=== PATIENT | male | born 1955 | race Caucasian/White ===

== ENCOUNTER 2016-10-21 09:44 | Observation (INO) | payer BC ==
[2016-10-19 08:11] VITALS: BMI 35.8
[~2016-10-21 09:44] MED LIST: Lidocaine 1% Inj (20ml) ONE
[2016-10-21] MEDS ORDERED: Lactated Ringer's 1,000 ML IV ONE ×2 (11:02)
[2016-10-21] MEDS ORDERED: ceFAZolin IV 2 gm in Dextrose 0 GM/0 ML BAG IVPB ONE (11:06)
[2016-10-21] MEDS ORDERED: Bupivacaine 0.5%/Epi 1:200,000 (10 ML SOL) ONE (11:06)
[2016-10-21] MEDS ORDERED: Midazolam 2 MG/2 ML VIAL ONE (11:14)
[2016-10-21] MEDS ORDERED: Propofol 10 mg/ml Inj (20 ML) ONE (11:14)
[2016-10-21] MEDS ORDERED: Vancomycin 1 gm/D5W 200 ml 1 GM/200 ML BAG IVPB ONE (11:17)
[2016-10-21] MEDS ORDERED: Etomidate 20 mg/10ml Inj IV ONE (11:32)
[2016-10-21] MEDS ORDERED: Sodium Chloride 0.9% 1,000 ML IV ONE ×2 (12:00→18:35)
[2016-10-21] MEDS ORDERED: Rocuronium 10 mg/ml (5 ml) ONE (13:17)
[2016-10-21] MEDS ORDERED: Neostigmine Methylsulfate 3mg/3ml Syringe IV ONE (13:24)
[2016-10-21] MEDS ORDERED: Oxycodone/Acetaminophen 5/325 mg Tab PO PRN ×3 (13:41→19:11)
[2016-10-21] MEDS: HYDROmorphone 0.5 mg/0.5 ml ISec IVP PRN ×2 (13:47→14:12)
--- NOTE | 2016-10-21 13:53 | PCM.SURG1 ---
Surgeon's Initial Post Op Note - Surgeon's Notes Surgeon: Dr. Anglin Floor Covering Printer: Jennifer Fajardo, PGY2; [facility] [place] Pre-Operative Diagnosis: large Chronic left inguinal hernia Operative Findings: see full operative report Post-Operative Diagnosis: large chronic direct/indirect left inguinal hernia Operation Performed: open left inguinal hernia repair with mesh Specimen/Specimens Removed: left inguinal hernia sac Estimated Blood Loss: EBL {In ML}: 50 Date of Surgery/Procedure: 10/21/16 Time of Surgery/Procedure: 12:30
--- NOTE | 2016-10-21 16:59 | OP ---
PROCEDURE DATE: 10/21/2016 PREOPERATIVE DIAGNOSIS: Large chronically incarcerated left inguinal hernia. PROCEDURE: Repair of large chronically incarcerated left inguinal hernia with PHS Prolene hernia system. SURGEON: Romario Anglin Jr., MD APPAREL EMBROIDERY DIGITIZER: Dr. Joyner. ANESTHESIA ADMINISTERED BY: , PALLIATIVE CARE SPECIALIST INDICATIONS: The patient is a 61-year-old man with history of coronary artery disease who has a large chronically incarcerated left inguinal hernia. OPERATIVE FINDINGS: Primarily incarcerated omentum and colon. This was reduced spontaneously. The sac was then opened. The distal portion left inside with the peritoneal side portion stapled making sure that we did not injure the bowel or intestine. We then deployed the PHS Prolene hernia system internally while the other part sutured and stapled it into position and we had an excellent repair. We then closed the external oblique. We made sure the testicles were in the scrotum. There were no operative complications or problems. The blood loss was approximately 100 mL. The operation carried out is repair of chronically incarcerated left inguinal hernia with a PHS Prolene hernia system. The patient was on Plavix and did not have any unusual bleeding during the procedure. The scrotum on the left side was the size of a cantaloupe, which was reduced in size . Romario Anglin Jr., MD
[2016-10-21 19:57] VITALS: RESP 20
[2016-10-21] MEDS: Sodium Chloride 0.9% 1,000 ML IV SCH (21:35)
[2016-10-22] MEDS: Sodium Chloride 0.9% 1,000 ML IV SCH (06:30)
[2016-10-22 08:00] LABS: BASO % 0.3 % (0.0-2.0); EOS % 0.4 % (0.0-4.0); HEMATOCRIT 36.1 % (35.0-51.0); LYMPH # 0.5 K/uL (1.0-4.3); LYMPH % 5.2 % (20.0-40.0); MEAN CELL VOLUME 86.2 fL (80.0-94.0); MEAN CORPUSCULAR HEMOGLOBIN 30.2 pg (27.0-31.0); MEAN PLATELET VOLUME 6.8 fL (7.2-11.7); MONO # 0.9 K/uL (0.0-0.8); MONO % 9.6 % (0.0-10.0); PLATELET COUNT 142 K/uL (130-400); RED CELL DISTRIBUTION WIDTH 13.5 % (11.5-14.5); WHITE BLOOD COUNT 9.6 K/uL (4.8-10.8)
[2016-10-22 08:06] LABS: CHLORIDE 96 mmol/L (98-107); POTASSIUM 4.5 mmol/L (3.6-5.2); SODIUM 135 mmol/L (132-148)
[2016-10-22 08:08] LABS: BLOOD UREA NITROGEN 11 mg/dL (9-20); CARBON DIOXIDE 27 mmol/L (22-30); GFR AFRICAN-AMERICAN > 60
[2016-10-22 08:09] LABS: CALCIUM 8.3 mg/dl (8.6-10.4); GLUCOSE,RANDOM 114 mg/dL (75-110)
[2016-10-22 08:31] LABS: NEUTROPHIL 81 % (50-75); TOTAL CELLS COUNTED 100
[2016-10-22 08:38] VITALS: TEMP 99; O2SAT 94
--- NOTE | 2016-10-22 09:55 | CP.PCM.PN ---
Subjective - Date & Time of Evaluation Date of Evaluation: 10/22/16 Time of Evaluation: 09:00 - Subjective Subjective: Patient seen and examined at bedside this AM. After surgery patient was unable to have a strong urine stream despite fluid resuscitation and flomax so morales was inserted and admitted under observation overnight. Patient only had 200cc's urinary output at time of morales insertion. 800cc's of violeta urine found in morales this AM. No fevers, chills, nausea, vomiting, diarrhea, pain well controlled, and had a bowel movement. Since this AM, patient's morales was DC'd and he was able to void on his own. Objective - Vital Signs/Intake and Output Vital Signs (last 24 hours): Temp Pulse Resp BP Pulse Ox 99 F 95 H 20 143/79 94 L 10/22/16 08:37 10/22/16 08:37 10/22/16 08:37 10/22/16 08:37 10/22/16 08:37 Intake and Output: 10/22/16 10/22/16 06:59 18:59 Intake Total 300 Output Total 1400 Balance -1100 - Medications Medications: Current Medications Acetaminophen (Tylenol 325mg Tab) 650 mg PO Q6 PRN PRN Reason: Fever >100.4 F Last Admin: 10/21/16 23:52 Dose: 650 mg Amlodipine Besylate (Norvasc) 5 mg PO DAILY [facility] Clopidogrel Bisulfate (Plavix) 75 mg PO DAILY [facility] Docusate Sodium (Colace) 100 mg PO BID [facility] Famotidine (Pepcid) 20 mg PO DAILY [facility] Metoprolol Tartrate (Lopressor) 25 mg PO DAILY [facility] Ondansetron HCl (Zofran Inj) 4 mg IVP Q6H PRN PRN Reason: Nausea/Vomiting Oxycodone/Acetaminophen (Percocet 5/325 Mg Tab) 1 tab PO Q4H PRN PRN Reason: Pain, moderate (4-7) Stop: 10/24/16 13:45 Last Admin: 10/22/16 08:05 Dose: 1 tab Rosuvastatin Calcium (Crestor) 10 mg PO HS [facility] Last Admin: 10/21/16 21:35 Dose: 10 mg Tamsulosin HCl (Flomax) 0.4 mg PO DAILY [facility] - Labs Labs: 10/22/16 07:50 10/22/16 07:50 - Constitutional Appears: Well, Non-toxic, No Acute Distress - Head Exam Head Exam: ATRAUMATIC, NORMOCEPHALIC - Eye Exam Eye Exam: Normal appearance. absent: Conjunctival injection, Scleral icterus - ENT Exam ENT Exam: Mucous Membranes Moist, Normal Oropharynx - Respiratory Exam Respiratory Exam: NORMAL BREATHING PATTERN. absent: Accessory Muscle Use, Respiratory Distress - GI/Abdominal Exam GI & Abdominal Exam: Distended, Soft. absent: Tenderness Additional comments: left inguinal incision with dressings c/d/i, no surrounding erythema - Exam Exam: Scrotal Swelling (left scrotal swelling improved since pre-op, testical palpated in the appropriate position). absent: Testicular Tenderness - Extremities Exam Extremities Exam: absent: Calf Tenderness, Pedal Edema, Tenderness - Neurological Exam Neurological Exam: Alert, Awake, Oriented x3 - Psychiatric Exam Psychiatric exam: Normal Affect, Normal Mood - Skin Skin Exam: Dry, Normal Color, Warm Assessment and Plan - Assessment and Plan (Free Text) Assessment: 61M POD#1 s/p left inguinal hernia repair with mesh of a chronic left inguinal hernia with post op urinary retention Morales was d/c'd and patient was able to void freely Plan: D/C to home with follow up with Dr. Anglin and his primary outpatiently Strongly recommend a urology consult for possible prostate hypertrophy and urinary retention Discussed with Dr. Linnette Fajardo, PGY2
[2016-10-22 10:43] VITALS: BP 135/79; PULSE 98
== END 2016-10-22 14:59 | disposition home or self-care (01) ==
LOC: C.SDS 09:44 → C.9S 17:58 → C.5T 19:09
PROVIDERS: ADMIT Surgery Vascular Surgery; ATTEND Surgery Vascular Surgery
DX: K40.30 Unilateral inguinal hernia, with obstruction, without gangrene, not specified as recurrent (principal)
CPT/HCPCS: 36415; 49507; 80048; 85025; 88302; C1781; G0378; J1170; J2250; J2405; J2704; J2710; J3010; J3370; J7040; J7120

== ENCOUNTER 2016-10-23 13:52 | Emergency (ER) | payer BC ==
[2016-10-23 13:53] VITALS: BMI 35.8
[2016-10-23 15:33] LABS: RBC URINE 75 /hpf (0-3); URINE BACTERIA RARE (<OCC); URINE BILIRUBIN NEGATIVE (NEGATIVE); URINE BLOOD 3+ (NEGATIVE); URINE COLOR Amber (YELLOW); URINE GLUCOSE (UA) NORMAL (Normal); URINE KETONE NEGATIVE (NEGATIVE); URINE LEUKOCYTE ESTERASE TRACE Leu/uL (Negative); URINE PROTEIN 2+ mg/dL (NEGATIVE); URINE UROBILINOGEN NORMAL mg/dL (0.2-1.0); WBC URINE 6 /hpf (0-5)
[2016-10-23 15:40] VITALS: BP 157/87; PULSE 102; RESP 18; TEMP 98.4; O2SAT 96
--- NOTE | 2016-10-23 15:54 | C.PDOC ---
History Of Present Illness 61 y/o male presents to the ED for evaluation of urinary retention for the last 24 hours. Pt states he had ventral hernia repaired 2 days ago, was given one dose of Flomax and was discharged home yesterday without morales. States he has only been dribbling for the last 24 hours. Otherwise, denies any fever, n/v/d, or any other associated symptoms at this time. Time Seen by Provider: 10/23/16 14:33 Chief Complaint (Nursing): Male Genitourinary History Per: Patient History/Exam Limitations: no limitations Onset/Duration Of Symptoms: Days Current Symptoms Are (Timing): Still Present Associated Symptoms: Urinary Symptoms. denies: Fever, Chills, Nausea, Vomiting , Diarrhea, Loss Of Appetite, Back Pain, Chest Pain, Constipation Alleviating Factors: None Recent travel outside of the [place]: No Additional History Per: Patient Past Medical History Reviewed: Historical Data, Nursing Documentation, Vital Signs Vital Signs: Last Vital Signs Temp 98.4 F 10/23/16 15:39 Pulse 102 H 10/23/16 15:39 Resp 18 10/23/16 15:39 BP 157/87 H 10/23/16 15:39 Pulse Ox 96 10/23/16 16:07 - Medical History PMH: HTN, Hypercholesterolemia Denies: Chronic Kidney Disease Surgical History: Coronary Stent (09/25/16), Endoscopy Family History: States: Unknown Family Hx - Social History Hx Alcohol Use: No Hx Substance Use: No - Immunization History Hx Tetanus Toxoid Vaccination: No Hx Influenza Vaccination: No Hx Pneumococcal Vaccination: No Review Of Systems Except As Marked, All Systems Reviewed And Found Negative. Constitutional: Negative for: Fever, Chills Gastrointestinal: Negative for: Nausea, Vomiting Genitourinary: Positive for: Other (urinary retention). Negative for: Dysuria, Hematuria Musculoskeletal: Negative for: Back Pain Skin: Negative for: Rash Physical Exam - Physical Exam Appears: Non-toxic, No Acute Distress, Other (obese) Skin: Normal Color, Warm, Dry Head: Atraumatic, Normacephalic Neck: Normal ROM, Supple Chest: Symmetrical Cardiovascular: Rhythm Regular, No Murmur Respiratory: Normal Breath Sounds, No Rales, No Rhonchi, No Wheezing Gastrointestinal/Abdominal: Soft, Tenderness (mild suprapubic), No Guarding, No Rebound, Other (globus abdomen; healing ventral hernia scar) Extremity: Bilateral: Atraumatic, Normal ROM Neurological/Psych: Oriented x3, Normal Speech, Normal Cognition ED Course And Treatment - Laboratory Results Lab Interpretation: Normal (UA neg.) O2 Sat by Pulse Oximetry: 96 (RA) Pulse Ox Interpretation: Normal Reevaluation Time: 15:55 Reassessment Condition: Improved (morales for 1150 cc's, much relieved) - Physician Consult Information Outcome Of Conversation: 1440, 1530: d/w Dr. Anglin- ok to d/c home wt Urology f/u Medical Decision Making Medical Decision Makin:[address] Anglin who recommends morales catheter and outpatient urology follow up. persistent urinary retention POD 2 for ventral hernia repair pt may have had prostate issues prior to surgery- unclear. leg bag and prophylactic abx opt f/u with Dr. Cuong Carrero- Urology Wire Saw Operator. Disposition - Disposition Referrals: Romario Anglin Jr., MD [Staff Provider] - Song Carrero MD [Staff Provider] - Disposition: HOME/ ROUTINE Disposition Time: 15:57 Condition: GOOD Additional Instructions: continue leg bag Flomax 0.4 mg every day to shrink size of prostate gland Bactrim twice a day to help PREVENT UTI Follow-up with Dr. Cuong Carrero- Urologist- for further eval Call today for an appointment. Prescriptions: Sulfamethoxazole/Trimethoprim [Bactrim SS 400 mg-80 mg] 1 tab PO BID #28 tab Tamsulosin [Flomax] 0.4 mg PO DAILY #30 cap Instructions: Urinary Retention in Men (ED), Urinary Leg Bag (GEN) Forms: [employer] ([place]ammarinese) - Clinical Impression Clinical Impression: Urinary retention - Scribe Statement The provider has reviewed the documentation as recorded by the Scribe Riaz Ocampo All medical record entries made by the Scribe were at my direction and personally dictated by me. I have reviewed the chart and agree that the record accurately reflects my personal performance of the history, physical exam, medical decision making, and the department course for this patient. I have also personally directed, reviewed, and agree with the discharge instructions and disposition.
--- NOTE | 2016-10-23 15:55 | C.PDOC ---
Time Seen by Provider: 10/23/16 14:33 Chief Complaint (Nursing): Male Genitourinary Past Medical History Vital Signs: Last Vital Signs Temp 98.4 F 10/23/16 15:39 Pulse 102 H 10/23/16 15:39 Resp 18 10/23/16 15:39 BP 157/87 H 10/23/16 15:39 Pulse Ox 96 10/23/16 15:39 - Medical History PMH: HTN, Hypercholesterolemia Denies: Chronic Kidney Disease Surgical History: Coronary Stent (09/25/16), Endoscopy - Social History Hx Alcohol Use: No Hx Substance Use: No - Immunization History Hx Tetanus Toxoid Vaccination: No Hx Influenza Vaccination: No Hx Pneumococcal Vaccination: No ED Course And Treatment - Laboratory Results Lab Interpretation: Normal (UA neg.) O2 Sat by Pulse Oximetry: 96 Reevaluation Time: 15:55 Reassessment Condition: Improved (morales for 1150 cc's, much relieved) - Physician Consult Information Outcome Of Conversation: 1440, 1530: d/w Dr. Anglin- ak to d/c home [facility] Urology f/u Medical Decision Making Medical Decision Making: persistent urinary retention POD 2 for ventral hernia repair pt may have had prostate issues prior to surgery- unclear. leg bag and prophylactic abx opt f/u with Dr. Cuong Carrero- Urology Loan Representative. Disposition Doctor Will See Patient In The: Office Counseled Patient/Family Regarding: Studies Performed, Diagnosis - Disposition Disposition: HOME/ ROUTINE Disposition Time: 15:57 Condition: GOOD Forms: [employer] ([place]) - Clinical Impression Clinical Impression: Urinary retention
== END 2016-10-23 16:10 | disposition home or self-care (01) ==
LOC: C.ER 13:52
DX: R33.9 Retention of urine, unspecified (principal); I10 Essential (primary) hypertension; E78.00 Pure hypercholesterolemia, unspecified

== ENCOUNTER 2018-08-11 07:57 | Outpatient (CLI) | payer BC | END 2018-08-11 07:58 | disposition home or self-care (01) | LOC: C.CARD 07:57 | DX: R06.2 Wheezing (principal); Z95.5 Presence of coronary angioplasty implant and graft ==